=== PATIENT | female | born 1980 | race Caucasian/White ===

== ENCOUNTER 2016-06-30 10:03 | Outpatient (CLI) | payer OTHER | END 2016-06-30 10:04 | disposition home or self-care (01) | DX: K90.0 Celiac disease (principal); M79.7 Fibromyalgia; F41.1 Generalized anxiety disorder; F51.05 Insomnia due to other mental disorder; R25.2 Cramp and spasm; R25.3 Fasciculation; G43.109 Migraine with aura, not intractable, without status migrainosus; K86.81 Exocrine pancreatic insufficiency ==

== ENCOUNTER 2017-08-16 08:44 | Outpatient (CLI) | payer OTHER ==
--- NOTE | 2017-08-16 18:48 | Mammography Report ---
DIGITAL DIAGNOSTIC BILATERAL MAMMOGRAM: 08/16/2017 CLINICAL INDICATION: Left breast pain. TECHNIQUE: Bilateral CC and MLO views, left true lateral view. Markers were placed at the site of maximal tenderness identified by the patient in the left inner posterior breast. Additionally, she described diffuse tenderness throughout the lateral half of the left breast. This is the patient's baseline mammogram. FINDINGS: The breasts demonstrate scattered fibroglandular densities bilaterally. No suspicious mass, clustered microcalcifications, or region of architectural distortion is identified. IMPRESSION: NEGATIVE EXAMINATION. RECOMMENDATION: Routine annual screening, to commence at age 40, unless otherwise clinically indicated. BIRADS category 1-negative. STANDARD QUALIFYING STATEMENTS 1. This examination was reviewed with the aid of Computed-Aided Detection (CAD). 2. A negative or benign imaging report should not delay biopsy if clinically suspicious findings are present. Consider surgical consultation if warranted. More than 5% of cancers are not identified by imaging. 3. Dense breasts may obscure an underlying neoplasm. TD: 08/16/2017 18:46
== END 2017-08-16 08:45 | disposition home or self-care (01) ==
LOC: DI 08:44
PROVIDERS: ATTEND Naturopath
DX: N64.4 Mastodynia (principal)
CPT/HCPCS: 77066

== ENCOUNTER 2018-03-04 12:16 | Emergency (ER) | payer OTHER ==
[2018-03-04 13:36] LABS: BASOPHILS # (AUTO) 0.1 10^3/uL (0.0-0.1); BASOPHILS % (AUTO) 1.2 %; EOSINOPHILS # (AUTO) 0.1 10^3/uL (0.0-0.7); EOSINOPHILS % (AUTO) 1.5 %; HGB - HEMOGLOBIN 15.6 g/dL (12.0-16.0); LYMPHOCYTES % (AUTO) 34.8 %; MEAN CORPUSCULAR HEMOGLOBIN 31.6 pg (27.0-31.0); MEAN CORPUSCULAR HGB CONC 34.6 g/dL (32.0-36.0); MEAN CORPUSCULAR VOLUME 91.2 fL (81.0-99.0); MEAN PLATELET VOLUME 7.1 fL (7.9-10.8); MONOCYTES # (AUTO) 0.5 10^3/uL (0.0-1.0); MONOCYTES % (AUTO) 9.5 %; NEUTROPHILS # (AUTO) 3.1 10^3/uL (1.5-6.6); PLT - PLATELET COUNT 362 10^3/uL (130-450); RED BLOOD COUNT 4.95 10^6/uL (4.20-5.40); RED CELL DISTRIBUTION WIDTH 12.9 % (12.0-15.0); WHITE BLOOD COUNT 5.8 x10^3/uL (4.8-10.8)
[2018-03-04 13:51] LABS: ALBUMIN 4.6 g/dL (3.2-5.5); ALBUMIN/GLOBULIN RATIO 1.6 (1.0-2.2); ALKALINE PHOSPHATASE 52 IU/L (42-121); ALT ALANINE AMINOTRANSFERASE 15 IU/L (10-60); AST ASPARTATE AMINOTRANSFERASE 17 IU/L (10-42); BUN - BLOOD UREA NITROGEN 10 mg/dL (6-20); CALCIUM 9.5 mg/dL (8.5-10.3); CARBON DIOXIDE - CO2 23 mmol/L (21-32); CHLORIDE 105 mmol/L (101-111); CREATININE 0.7 mg/dL (0.4-1.0); GFR - MDRD 94 (>89); GLUCOSE 94 mg/dL (70-100); LIPASE 47 U/L (22-51); SALICYLATE < 6.0 mg/dL; SODIUM 137 mmol/L (135-145); TOTAL PROTEIN 7.5 g/dL (6.7-8.2)
[2018-03-04 14:13] LABS: ACETAMINOPHEN < 10 ug/mL (10-30)
[2018-03-04] MEDS ORDERED: LORazepam 0.5 MG TABLET PO STA (16:09)
--- NOTE | 2018-03-04 16:11 | ED Physician Documentation ---
PD HPI MHE - Stated complaint Stated Complaint: MHE - Chief complaint Chief Complaint: MHE - History obtained from History obtained from: Family () - History of Present Illness Primary symptom: Other (Several stressful things happened to her yesterday. She stopped talking and ran out of the house and started driving. They found her at a park later she said she was tired. This was early afternoon yesterday. She went home and really has not talked to walk or eat or drink since. She did something similar last year but only for a few hours.) Review of Systems Unable to obtain: Uncooperative PD PAST MEDICAL HISTORY - Past Medical History Past Medical History: Yes Psych: Depression, Anxiety, Panic attacks, Other Musculoskeletal: Fibromyalgia, Other - Past Surgical History Past Surgical History: Yes HEENT: Other - Present Medications Home Medications: Ambulatory Orders Medication Instructions Recorded Confirmed Budesonide [Budesonide EC] 3 mg PO 04/27/16 Charcoal DAILY 04/27/16 Diazepam [Valium] 10 mg PO DAILY #5 tablet 04/27/16 Magnesium Oxide [Magnesium] 400 mg PO DAILY 04/27/16 04/27/16 Nystatin 04/27/16 Ondansetron [Zuplenz] 4 mg PO DAILY 04/27/16 04/27/16 Propranolol [Inderal] 40 mg PO BID 04/27/16 04/27/16 RX: Gabapentin 600 mg PO DAILY 04/27/16 04/27/16 RX: Melatonin 10 mg SL 04/27/16 tiZANidine [Zanaflex] 4 mg PO Q8H 04/27/16 04/27/16 Lorazepam [Ativan] 1 mg PO TID PRN #10 tablet 03/04/18 - Allergies Allergies/Adverse Reactions: Allergies Allergy/AdvReac Type Severity Reaction Status Date / Time carisoprodol Allergy Anaphylaxis Verified 03/04/18 12:38 diclofenac Allergy Edema Verified 03/04/18 12:38 Latex, Natural Rubber Allergy Unknown Verified 03/04/18 12:38 cyclobenzaprine AdvReac Headache Verified 03/04/18 12:38 methocarbamol AdvReac Headache Verified 03/04/18 12:38 pseudoephedrine AdvReac Unknown Verified 03/04/18 12:38 Sulfa (Sulfonamide AdvReac Hives Verified 03/04/18 12:38 Antibiotics) - Social History Does the pt smoke?: No Smoking Status: Never smoker Does the pt drink ETOH?: No Does the pt have substance abuse?: No - Immunizations Immunizations are current?: Yes - POLST Patient has POLST: No PD ED PE NORMAL - Vitals Vital signs reviewed: Yes - General General: No acute distress, Other (She is laying in the bed comfortable with her eyes closed. She does follow simple commands like raising her arms and it is all symmetric.) - HEENT HEENT: PERRL - Neck Neck: Supple, no meningeal sign, No bony TTP - Cardiac Cardiac: RRR, No murmur - Respiratory Respiratory: No respiratory distress, Clear bilaterally - Abdomen Abdomen: Normal bowel sounds, Soft, Non tender - Back Back: No CVA TTP, No spinal TTP - Derm Derm: Normal color, Warm and dry - Extremities Extremities: No edema, No calf tenderness / cord Results - Vitals Vitals: Vital Signs - 24 hr 03/04/18 03/04/18 03/04/18 12:30 16:25 18:06 Temperature 36.7 C Heart Rate 81 93 79 Respiratory 14 22 16 Rate Blood Pressure 129/97 H 138/99 H 133/93 H O2 Saturation 98 97 97 Oxygen O2 Source Room air - Labs Labs: Laboratory Tests 03/04/18 03/04/18 03/04/18 13:27 13:27 13:27 WBC 5.8 RBC 4.95 Hgb 15.6 Hct 45.1 MCV 91.2 MCH 31.6 H MCHC 34.6 RDW 12.9 Plt Count 362 MPV 7.1 L Neut # (Auto) 3.1 Lymph # (Auto) 2.0 [place] # (Auto) 0.5 Eos # (Auto) 0.1 Baso # (Auto) 0.1 Absolute Nucleated RBC 0.00 Nucleated RBC % 0.0 Sodium 137 Potassium 4.2 Chloride 105 Carbon Dioxide 23 Anion Gap 9.0 BUN 10 Creatinine 0.7 Estimated GFR (MDRD) 94 Glucose 94 Calcium 9.5 Total Bilirubin 1.0 AST 17 ALT 15 Alkaline Phosphatase 52 Total Protein 7.5 Albumin 4.6 Globulin 2.9 Albumin/Globulin Ratio 1.6 Lipase 47 TSH 3.08 Urine Color Urine Clarity Urine pH Ur Specific [place] Urine Protein Urine Glucose (UA) Urine Ketones Urine Occult Blood Urine Nitrite Urine Bilirubin Urine Urobilinogen Ur Leukocyte Esterase Urine RBC Urine WBC Ur Squamous Epith Cells Urine Bacteria Urine Mucus Ur Microscopic Review Urine Culture Comments Urine HCG, Qual Salicylates < 6.0 Urine Opiates Screen Ur Oxycodone Screen Urine Methadone Screen Ur Propoxyphene Screen Acetaminophen < 10 L Ur Barbiturates Screen Ur Tricyclics Screen Ur Phencyclidine Scrn Ur Amphetamine Screen U Methamphetamines Scrn U Benzodiazepines Scrn Urine Cocaine Screen U Cannabinoids Screen Ethyl Alcohol < 5.0 03/04/18 03/04/18 18:15 18:15 WBC RBC Hgb Hct MCV MCH MCHC RDW Plt Count MPV Neut # (Auto) Lymph # (Auto) [place] # (Auto) Eos # (Auto) Baso # (Auto) Absolute Nucleated RBC Nucleated RBC % Sodium Potassium Chloride Carbon Dioxide Anion Gap BUN Creatinine Estimated GFR (MDRD) Glucose Calcium Total Bilirubin AST ALT Alkaline Phosphatase Total Protein Albumin Globulin Albumin/Globulin Ratio Lipase TSH Urine Color YELLOW Urine Clarity HAZY Urine pH 6.0 Ur Specific [place] 1.025 Urine Protein NEGATIVE Urine Glucose (UA) NEGATIVE Urine Ketones >=80 H Urine Occult Blood NEGATIVE Urine Nitrite NEGATIVE Urine Bilirubin NEGATIVE Urine Urobilinogen 0.2 (NORMAL) Ur Leukocyte Esterase TRACE H Urine RBC 0-5 Urine WBC 0-3 Ur Squamous Epith Cells MOD Squamous H Urine Bacteria Rare Urine Mucus Moderate Strands Ur Microscopic Review INDICATED Urine Culture Comments NOT INDICATED Urine HCG, Qual NEGATIVE Salicylates Urine Opiates Screen NEGATIVE Ur Oxycodone Screen NEGATIVE Urine Methadone Screen NEGATIVE Ur Propoxyphene Screen NEGATIVE Acetaminophen Ur Barbiturates Screen NEGATIVE Ur Tricyclics Screen NEGATIVE Ur Phencyclidine Scrn NEGATIVE Ur Amphetamine Screen NEGATIVE U Methamphetamines Scrn NEGATIVE U Benzodiazepines Scrn NEGATIVE Urine Cocaine Screen NEGATIVE U Cannabinoids Screen POSITIVE H Ethyl Alcohol PD MEDICAL DECISION MAKING - ED course ED course: She presents in a catatonic state although does respond to commands. The history suggests a psychiatric etiology. Long discussion was had with the we decided to give her some Ativan. She refused oral Ativan it was given IM. She woke up after that and had her eyes open and was responding to verbal but still nonverbal herself. She would shrug and nod and shake her head to questions. She did complain of a migraine headache. She admits that she has these at home and usually takes off brand Excedrin migraine for this and something similar was ordered. About 6-15 p.m. the patient was awake and talking and had normal affect and felt back to normal. She had eaten and drank. - Sepsis Event Vital Signs: Vital Signs - 24 hr 03/04/18 03/04/18 03/04/18 12:30 16:25 18:06 Temperature 36.7 C Heart Rate 81 93 79 Respiratory 14 22 16 Rate Blood Pressure 129/97 H 138/99 H 133/93 H O2 Saturation 98 97 97 Oxygen O2 Source Room air Departure - Departure Disposition: 01 Home, Self Care Clinical Impression: Conversion disorder Condition: Good Record reviewed to determine appropriate education?: Yes Instructions: ED Stress React Prescriptions: Lorazepam [Ativan] 1 mg PO TID PRN #10 tablet PRN Reason: Anxiety Comments: FOLLOWUP WITH [facility] IN [place]. [phone] Discharge Date/Time: 03/04/18 18:49
[2018-03-04] MEDS ORDERED: LORazepam 2 MG/ML VIAL IM STA (16:18)
[2018-03-04] MEDS ORDERED: IBUPROFEN 800 MG TABLET PO STA (17:23)
[2018-03-04] MEDS ORDERED: diphenhydrAMINE 25 MG CAPSULE PO STA (17:23)
[2018-03-04] MEDS ORDERED: ACETAMINOPHEN 325 MG TABLET PO STA (17:33)
[2018-03-04 18:08] VITALS: BP 133/93
[2018-03-04 18:28] LABS: MUDS CUTOFF CONCENTRATIONS CUTOFF CONC BELOW:
[2018-03-04 18:37] LABS: BILIRUBIN,URINE NEGATIVE (NEGATIVE); GLUCOSE, URINE (UA) NEGATIVE (NEGATIVE); KETONES,URINE (UA) >=80 mg/dL (NEGATIVE); LEUKOCYTE ESTERASE, URINE TRACE (NEGATIVE); NITRITE,URINE NEGATIVE (NEGATIVE); OCCULT BLOOD,URINE NEGATIVE (NEGATIVE); PROTEIN,URINE NEGATIVE (NEGATIVE); UROBILINOGEN,URINE 0.2 (NORMAL) E.U./dL (NORMAL)
[2018-03-04 18:51] LABS: AMPHETAMINE SCREEN,URINE NEGATIVE (NEGATIVE); BENZODIAZEPINES SCREEN, URINE NEGATIVE (NEGATIVE); CLARITY,URINE HAZY (CLEAR); COCAINE SCREEN URINE NEGATIVE (NEGATIVE); HCG UR QUAL NEGATIVE; METHADONE SCREEN, URINE NEGATIVE (NEGATIVE); METHAMPHETAMINES SCREEN, URINE NEGATIVE (NEGATIVE); OPIATE SCREEN, URINE NEGATIVE (NEGATIVE); OXYCODONE SCREEN, URINE NEGATIVE (NEGATIVE); PROPOXYPHENE SCREEN, URINE NEGATIVE (NEGATIVE); TRICYCLIC ANTIDEPRESSANT,URINE NEGATIVE (NEGATIVE)
[2018-03-04 18:52] LABS: BACTERIA,URINE Rare /HPF (None Seen); MUCUS,URINE Moderate Strands; RBC,URINE 0-5 /HPF (0-5); SQUAMOUS EPITHELIAL CELL,UR MOD Squamous (<= Few)
== END 2018-03-04 18:49 | disposition home or self-care (01) ==
LOC: ED 12:16
DX: F44.7 Conversion disorder with mixed symptom presentation (principal); G43.909 Migraine, unspecified, not intractable, without status migrainosus; F32.9 Major depressive disorder, single episode, unspecified; F41.9 Anxiety disorder, unspecified
CPT/HCPCS: 36415; 80053; 80306; 80307; 80320; 80329; 81001; 81025; 83690; 84443; 85025; 96372; 99283; A9270; J2060; 81003; 87086

== ENCOUNTER 2018-03-28 16:19 | Emergency (ER) | payer OTHER ==
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
[2018-03-28] MEDS ORDERED: ACETAMINOPHEN 325 MG TABLET PO STA (17:41)
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
[2018-03-28 18:34] VITALS: BP 130/88
== END 2018-03-28 18:32 | disposition home or self-care (01) ==
LOC: ED 16:19
DX: S70.11XA Contusion of right thigh, initial encounter (principal); S10.91XA Abrasion of unspecified part of neck, initial encounter; Y04.2XXA Assault by strike against or bumped into by another person, initial encounter; Y92.009 Unspecified place in unspecified non-institutional (private) residence as the place of occurrence of the external cause
CPT/HCPCS: 73552; 99283; A9270

== ENCOUNTER 2019-11-24 17:33 | Outpatient (CLI) | payer OTHER | END 2019-11-24 17:34 | disposition critical access hospital (66) | LOC: EMS 17:33 | PROVIDERS: ATTEND Surgery | DX: R45.851 Suicidal ideations (principal); R52 Pain, unspecified | CPT/HCPCS: A0425; A0429 ==

== ENCOUNTER 2019-11-24 17:44 | Emergency (ER) | payer OTHER ==
[2019-11-24] MEDS ORDERED: SODIUM CHLORIDE 0.9% 1,000 ML IV STA ×2 (17:54)
[2019-11-24] MEDS ORDERED: LORazepam 2 MG/ML VIAL IVP STA (18:03)
[2019-11-24 18:04] LABS: BASOPHILS # (AUTO) 0.1 10^3/uL (0.0-0.1); BASOPHILS % (AUTO) 0.9 %; EOSINOPHILS # (AUTO) 0.1 10^3/uL (0.0-0.7); EOSINOPHILS % (AUTO) 1.1 %; HGB - HEMOGLOBIN 15.6 g/dL (12.0-16.0); LYMPHOCYTES % (AUTO) 27.7 %; MEAN CORPUSCULAR HEMOGLOBIN 32.4 pg (27.0-31.0); MEAN CORPUSCULAR HGB CONC 34.7 g/dL (32.0-36.0); MEAN CORPUSCULAR VOLUME 93.3 fL (81.0-99.0); MEAN PLATELET VOLUME 8.4 fL (7.9-10.8); MONOCYTES # (AUTO) 0.6 10^3/uL (0.0-1.0); MONOCYTES % (AUTO) 8.3 %; NEUTROPHILS # (AUTO) 4.6 10^3/uL (1.5-6.6); NEUTROPHILS % (AUTO) 61.7 %; PLT - PLATELET COUNT 336 10^3/uL (130-450); RED BLOOD COUNT 4.81 10^6/uL (4.20-5.40); RED CELL DISTRIBUTION WIDTH 11.9 % (12.0-15.0); WHITE BLOOD COUNT 7.4 x10^3/uL (4.8-10.8)
--- NOTE | 2019-11-24 18:15 | ED Physician Documentation ---
PD HPI MHE - Stated complaint Stated Complaint: SI - Chief complaint Chief Complaint: General - History obtained from History obtained from: Patient, Family - History of Present Illness Primary symptom: Suicidal ideation Timing - onset: How many days ago (3) Pain level max: 0 Pain level now: 0 Contributing factors: Other (states that she is tired of having medical problems and "being sick".) Similar symptoms before: Diagnosis (Depression) - Additional information Additional information: 39-year-old female brought into the emergency department by EMS. Her called 911 because she had been refusing to eat for the past 2 days. She had some water last night but none today. He states that she said she was just going to lie in bed until she . She states she is tired of having chronic medical issues and does not want to live anymore. She does not want to see a psychiatrist. She does not want any psychiatric help. She does not want to see a counselor. Review of Systems Ten Systems: 10 systems reviewed and negative Constitutional: denies: Fever, Chills Ears: denies: Ear pain Nose: denies: Rhinorrhea / runny nose, Congestion Respiratory: denies: Cough GI: denies: Abdominal Pain, Vomiting, Diarrhea Skin: denies: Rash Musculoskeletal: denies: Neck pain, Back pain Neurologic: denies: Focal weakness, Numbness, Headache PD PAST MEDICAL HISTORY - Past Medical History Past Medical History: Yes Respiratory: None Neuro: None Endocrine/Autoimmune: Other GI: Diverticulitis INTERNATIONAL REPRESENTATIVE: None HEENT: None Psych: Depression, Anxiety, Panic attacks, Other Musculoskeletal: Fibromyalgia, Other Derm: None - Past Surgical History Past Surgical History: Yes HEENT: Other - Present Medications Home Medications: Ambulatory Orders Medication Instructions Recorded Confirmed Budesonide [Budesonide EC] 3 mg PO 04/27/16 Charcoal DAILY 04/27/16 Diazepam [Valium] 10 mg PO DAILY #5 tablet 04/27/16 Gabapentin 600 mg PO DAILY 04/27/16 04/27/16 Magnesium Oxide [Magnesium] 400 mg PO DAILY 04/27/16 04/27/16 Melatonin 10 mg SL 04/27/16 Nystatin 04/27/16 Ondansetron [Zuplenz] 4 mg PO DAILY 04/27/16 04/27/16 Propranolol [Inderal] 40 mg PO BID 04/27/16 04/27/16 tiZANidine [Zanaflex] 4 mg PO Q8H 04/27/16 04/27/16 Lorazepam [Ativan] 1 mg PO TID PRN #10 tablet 03/04/18 - Allergies Allergies/Adverse Reactions: Allergies Allergy/AdvReac Type Severity Reaction Status Date / Time carisoprodol Allergy Anaphylaxis Verified 11/24/19 17:59 diclofenac Allergy Edema Verified 11/24/19 17:59 Latex, Natural Rubber Allergy Unknown Verified 11/24/19 17:59 cyclobenzaprine AdvReac Headache Verified 11/24/19 17:59 methocarbamol AdvReac Headache Verified 11/24/19 17:59 pseudoephedrine AdvReac Unknown Verified 11/24/19 17:59 Sulfa (Sulfonamide AdvReac Hives Verified 11/24/19 17:59 Antibiotics) - Social History Does the pt smoke?: No Smoking Status: Never smoker Does the pt drink ETOH?: No Does the pt have substance abuse?: No - Immunizations Immunizations are current?: Yes - POLST Patient has POLST: No PD ED PE NORMAL - Vitals Vital signs reviewed: Yes - General General: Alert and oriented X 3, No acute distress, Well developed/nourished - HEENT HEENT: PERRL, Moist mucous membranes - Neck Neck: Supple, no meningeal sign - Cardiac Cardiac: RRR, Strong equal pulses - Respiratory Respiratory: No respiratory distress, Clear bilaterally - Abdomen Abdomen: Soft, Non tender, Non distended - Derm Derm: Warm and dry - Extremities Extremities: No edema - Neuro Neuro: Alert and oriented X 3 - Psych Psych: Normal mood, Normal affect Results - Vitals Vitals: Vital Signs - 24 hr 11/24/19 17:44 Temperature 36.9 C Heart Rate 75 Respiratory 18 Rate Blood Pressure 166/80 H O2 Saturation 99 Oxygen O2 Source Room air - EKG (time done) 1838 Rate: Rate (enter#) (64) Rhythm: NSR [place]: Normal Intervals: Normal [place] QRS: Normal Ischemia: Normal ST segments - Labs Labs: Laboratory Tests 11/24/19 11/24/19 11/24/19 17:58 17:58 17:58 WBC 7.4 RBC 4.81 Hgb 15.6 Hct 44.9 MCV 93.3 MCH 32.4 H MCHC 34.7 RDW 11.9 L Plt Count 336 MPV 8.4 Neut # (Auto) 4.6 Lymph # (Auto) 2.0 [place] # (Auto) 0.6 Eos # (Auto) 0.1 Baso # (Auto) 0.1 Absolute Nucleated RBC 0.00 Nucleated RBC % 0.0 Sodium 137 Potassium 3.8 Chloride 102 Carbon Dioxide 22 Anion Gap 13.0 BUN 11 Creatinine 0.8 Estimated GFR (MDRD) 80 L Glucose 92 Calcium 9.5 Total Bilirubin 1.1 H AST 16 ALT 15 Alkaline Phosphatase 48 Total Protein 7.7 Albumin 4.1 Globulin 3.6 Albumin/Globulin Ratio 1.1 Lipase 33 TSH 1.12 Urine Color Urine Clarity Urine pH Ur Specific [place] Urine Protein Urine Glucose (UA) Urine Ketones Urine Occult Blood Urine Nitrite Urine Bilirubin Urine Urobilinogen Ur Leukocyte Esterase Ur Microscopic Review Urine Culture Comments Urine HCG, Qual Salicylates < 6.0 Urine Opiates Screen Ur Oxycodone Screen Urine Methadone Screen Ur Propoxyphene Screen Acetaminophen < 10 L Ur Barbiturates Screen Ur Tricyclics Screen Ur Phencyclidine Scrn Ur Amphetamine Screen U Methamphetamines Scrn U Benzodiazepines Scrn Urine Cocaine Screen U Cannabinoids Screen Ethyl Alcohol < 5.0 11/24/19 11/24/19 18:03 18:03 WBC RBC Hgb Hct MCV MCH MCHC RDW Plt Count MPV Neut # (Auto) Lymph # (Auto) [place] # (Auto) Eos # (Auto) Baso # (Auto) Absolute Nucleated RBC Nucleated RBC % Sodium Potassium Chloride Carbon Dioxide Anion Gap BUN Creatinine Estimated GFR (MDRD) Glucose Calcium Total Bilirubin AST ALT Alkaline Phosphatase Total Protein Albumin Globulin Albumin/Globulin Ratio Lipase TSH Urine Color YELLOW Urine Clarity CLEAR Urine pH 6.0 Ur Specific [place] 1.025 Urine Protein NEGATIVE Urine Glucose (UA) NEGATIVE Urine Ketones 40 H Urine Occult Blood NEGATIVE Urine Nitrite NEGATIVE Urine Bilirubin NEGATIVE Urine Urobilinogen 0.2 (NORMAL) Ur Leukocyte Esterase NEGATIVE Ur Microscopic Review NOT INDICATED Urine Culture Comments NOT INDICATED Urine HCG, Qual NEGATIVE Salicylates Urine Opiates Screen NEGATIVE Ur Oxycodone Screen NEGATIVE Urine Methadone Screen NEGATIVE Ur Propoxyphene Screen NEGATIVE Acetaminophen Ur Barbiturates Screen NEGATIVE Ur Tricyclics Screen NEGATIVE Ur Phencyclidine Scrn NEGATIVE Ur Amphetamine Screen NEGATIVE U Methamphetamines Scrn NEGATIVE U Benzodiazepines Scrn NEGATIVE Urine Cocaine Screen NEGATIVE U Cannabinoids Screen NEGATIVE Ethyl Alcohol PD MEDICAL DECISION MAKING - ED course Complexity details: reviewed results, re-evaluated patient, considered differential, d/w patient, d/w family, d/w clothing consultant ED course: Patient is medically clear for psychiatric care. She does not want to go anywhere voluntarily. She does not want to speak to a counselor or psychiatrist. Therefore the DCR was contacted, Tatiana who will evaluate the patient. Patient feels better after Ativan. She feels better after IV fluids. She is tolerating p.o. without difficulty. She was evaluated by the [facility] P. She contracts for safety. She states she will go back to counseling. She agrees to eat and drink every day. She does not have any active suicidal thoughts at this time. Patient and are comfortable going home at this time. Patient and family counseled regarding signs and symptoms for which I believe and urgent re-evaluation would be necessary. Patient with good understanding of and agreement to plan and is comfortable going home at this time This document was made in part using voice recognition software. While efforts are made to proofread this document, sound alike and grammatical errors may occur. Departure - Departure Disposition: 01 Home, Self Care Clinical Impression: Depression Qualifiers: Depression Type: unspecified Qualified Code(s): F32.9 - Major depressive disorder, single episode, unspecified Condition: Good Instructions: ED Depression Follow-Up: your,doctor in 3 days [Other] Comments: You need to follow-up with the counselors as directed by Tatiana, the [facility] Venessa chaparro. Return if you worsen. You have contracted for safety with her shankar. You need to continue to eat and drink. Crisis Line and is available to talk to someone [email or web address] is also available to chat with someone online if you prefer. There are also many resources on this website and apps for your phone to help with your mental health You can also text the word START to [phone] to chat with someome via text.
[2019-11-24 18:16] LABS: MUDS CUTOFF CONCENTRATIONS CUTOFF CONC BELOW:
[2019-11-24 18:21] LABS: ACETAMINOPHEN < 10 ug/mL (10-30); ALBUMIN 4.1 g/dL (3.2-5.5); ALBUMIN/GLOBULIN RATIO 1.1 (1.0-2.2); ALKALINE PHOSPHATASE 48 IU/L (42-121); ALT ALANINE AMINOTRANSFERASE 15 IU/L (10-60); AST ASPARTATE AMINOTRANSFERASE 16 IU/L (10-42); BILIRUBIN,TOTAL 1.1 mg/dL (0.2-1.0); BUN - BLOOD UREA NITROGEN 11 mg/dL (6-20); CALCIUM 9.5 mg/dL (8.5-10.3); CARBON DIOXIDE - CO2 22 mmol/L (21-32); CHLORIDE 102 mmol/L (101-111); CREATININE 0.8 mg/dL (0.4-1.0); GLUCOSE 92 mg/dL (70-100); LIPASE 33 U/L (22-51); SALICYLATE < 6.0 mg/dL; SODIUM 137 mmol/L (135-145); TOTAL PROTEIN 7.7 g/dL (6.7-8.2)
[2019-11-24 18:22] LABS: BILIRUBIN,URINE NEGATIVE (NEGATIVE); GLUCOSE, URINE (UA) NEGATIVE (NEGATIVE); KETONES,URINE (UA) 40 mg/dL (NEGATIVE); LEUKOCYTE ESTERASE, URINE NEGATIVE (NEGATIVE); NITRITE,URINE NEGATIVE (NEGATIVE); OCCULT BLOOD,URINE NEGATIVE (NEGATIVE); PROTEIN,URINE NEGATIVE (NEGATIVE); UROBILINOGEN,URINE 0.2 (NORMAL) E.U./dL (NORMAL)
[2019-11-24 18:23] LABS: CLARITY,URINE CLEAR (CLEAR); HCG UR QUAL NEGATIVE
[2019-11-24 18:37] LABS: AMPHETAMINE SCREEN,URINE NEGATIVE (NEGATIVE); BENZODIAZEPINES SCREEN, URINE NEGATIVE (NEGATIVE); COCAINE SCREEN URINE NEGATIVE (NEGATIVE); METHADONE SCREEN, URINE NEGATIVE (NEGATIVE); METHAMPHETAMINES SCREEN, URINE NEGATIVE (NEGATIVE); OPIATE SCREEN, URINE NEGATIVE (NEGATIVE); OXYCODONE SCREEN, URINE NEGATIVE (NEGATIVE); PROPOXYPHENE SCREEN, URINE NEGATIVE (NEGATIVE); TRICYCLIC ANTIDEPRESSANT,URINE NEGATIVE (NEGATIVE)
[2019-11-24 21:59] VITALS: BP 156/80
== END 2019-11-24 22:02 | disposition home or self-care (01) ==
LOC: EDUNIT# → ED 17:44
DX: F32.9 Major depressive disorder, single episode, unspecified (principal); R45.851 Suicidal ideations; I49.1 Atrial premature depolarization
CPT/HCPCS: 36415; 80053; 80306; 80307; 80320; 80329; 81001; 81003; 81025; 83690; 84443; 85025; 87086; 93005; 96360; 99284

== ENCOUNTER 2020-11-17 12:24 | Outpatient (CLI) | payer OTHER ==
[2020-11-17 13:01] LABS: ALBUMIN 4.5 g/dL (3.2-5.5); ALBUMIN/GLOBULIN RATIO 1.7 (1.0-2.2); BILIRUBIN,TOTAL 0.7 mg/dL (0.2-1.0); CALCIUM 9.6 mg/dL (8.5-10.3); CREATININE 0.7 mg/dL (0.4-1.0); CRP HIGH SENSITIVITY 1.7 mg/L; POTASSIUM 4.1 mmol/L (3.5-5.0); TOTAL PROTEIN 7.2 g/dL (6.7-8.2)
[2020-11-17 13:19] LABS: FERRITIN 54.1 ng/mL (11.0-306.8)
[2020-11-17 13:22] LABS: FOLATE 7.2 ng/mL (5.90 - >24.8)
[2020-11-20 09:51] LABS: COPPER 120 mcg/dL (70-175)
== END 2020-11-17 12:25 | disposition home or self-care (01) ==
LOC: LAB 12:24
PROVIDERS: ATTEND Nurse Practitioner Adult Health
DX: K90.0 Celiac disease (principal)
CPT/HCPCS: 36415; 80053; 82525; 82607; 82728; 82746; 82784; 83516; 83540; 84466; 84630; 86141; 86255

== ENCOUNTER 2020-12-20 16:56 | Emergency (ER) | payer OTHER ==
[2020-12-20 17:26] LABS: BASOPHILS # (AUTO) 0.1 10^3/uL (0.0-0.1); BASOPHILS % (AUTO) 1.4 %; EOSINOPHILS # (AUTO) 0.3 10^3/uL (0.0-0.7); EOSINOPHILS % (AUTO) 5.4 %; HCT - HEMATOCRIT 41.8 % (37.0-47.0); HGB - HEMOGLOBIN 14.6 g/dL (12.0-16.0); LYMPHOCYTES # (AUTO) 1.7 10^3/uL (1.5-3.5); LYMPHOCYTES % (AUTO) 33.6 %; MEAN CORPUSCULAR HEMOGLOBIN 31.8 pg (27.0-31.0); MEAN CORPUSCULAR HGB CONC 34.9 g/dL (32.0-36.0); MEAN CORPUSCULAR VOLUME 91.1 fL (81.0-99.0); MEAN PLATELET VOLUME 8.6 fL (7.9-10.8); MONOCYTES # (AUTO) 0.5 10^3/uL (0.0-1.0); MONOCYTES % (AUTO) 10.2 %; NEUTROPHILS # (AUTO) 2.5 10^3/uL (1.5-6.6); NEUTROPHILS % (AUTO) 49.2 %; PLT - PLATELET COUNT 403 10^3/uL (130-450); RED BLOOD COUNT 4.59 10^6/uL (4.20-5.40); RED CELL DISTRIBUTION WIDTH 12.1 % (12.0-15.0)
[2020-12-20 17:36] LABS: ALBUMIN 4.4 g/dL (3.2-5.5); ALBUMIN/GLOBULIN RATIO 1.5 (1.0-2.2); BILIRUBIN,TOTAL 0.7 mg/dL (0.2-1.0); CALCIUM 9.4 mg/dL (8.5-10.3); POTASSIUM 4.1 mmol/L (3.5-5.0); TOTAL PROTEIN 7.4 g/dL (6.7-8.2)
--- NOTE | 2020-12-20 19:24 | ED Physician Documentation ---
PD HPI ABD PAIN - Stated complaint Stated Complaint: FEMALE - Chief complaint Chief Complaint: Abd Pain - History obtained from History obtained from: Patient - Additional information Additional information: Heavy heavy vaginal bleeding today with some weakness and dizziness. No cramps. She has a history of Tracie-Danlos. Current menses is at the normal time. Review of Systems Ten Systems: 10 systems reviewed and negative Constitutional: reports: Fatigue. denies: Fever, Chills Nose: reports: Reviewed and negative Throat: reports: Reviewed and negative Cardiac: reports: Reviewed and negative Respiratory: reports: Reviewed and negative PD PAST MEDICAL HISTORY - Past Medical History Respiratory: None Neuro: None Endocrine/Autoimmune: Other GI: Diverticulitis MUSEUM TECHNICIAN: None HEENT: None Psych: Depression, Anxiety, Panic attacks, Other Musculoskeletal: Fibromyalgia, Other Derm: None - Past Surgical History Past Surgical History: Yes HEENT: Other - Present Medications Home Medications: Ambulatory Orders Medication Instructions Recorded Confirmed Budesonide [Budesonide EC] 3 mg PO 04/27/16 Charcoal DAILY 04/27/16 Diazepam [Valium] 10 mg PO DAILY #5 tablet 04/27/16 Gabapentin 600 mg PO DAILY 04/27/16 04/27/16 Magnesium Oxide [Magnesium] 400 mg PO DAILY 04/27/16 04/27/16 Melatonin 10 mg SL 04/27/16 Nystatin 04/27/16 Ondansetron [Zuplenz] 4 mg PO DAILY 04/27/16 04/27/16 Propranolol [Inderal] 40 mg PO BID 04/27/16 04/27/16 tiZANidine [Zanaflex] 4 mg PO Q8H 04/27/16 04/27/16 Lorazepam [Ativan] 1 mg PO TID PRN #10 tablet 03/04/18 Medroxyprogesterone Acetate 2 tab PO TID 7 Days #42 tablet 12/20/20 [Provera] - Allergies Allergies/Adverse Reactions: Allergies Allergy/AdvReac Type Severity Reaction Status Date / Time carisoprodol Allergy Anaphylaxis Verified 12/20/20 17:00 diclofenac Allergy Edema Verified 12/20/20 17:00 Latex, Natural Rubber Allergy Unknown Verified 12/20/20 17:00 cyclobenzaprine AdvReac Headache Verified 12/20/20 17:00 methocarbamol AdvReac Headache Verified 12/20/20 17:00 pseudoephedrine AdvReac Unknown Verified 12/20/20 17:00 Sulfa (Sulfonamide AdvReac Hives Verified 12/20/20 17:00 Antibiotics) - Social History Does the pt smoke?: No Smoking Status: Never smoker Does the pt drink ETOH?: No Does the pt have substance abuse?: No - Immunizations Immunizations are current?: Yes - POLST Patient has POLST: No PD ED PE NORMAL - Vitals Vital signs reviewed: Yes - General General: Alert and oriented X 3, No acute distress - Cardiac Cardiac: RRR, No murmur - Respiratory Respiratory: No respiratory distress, Clear bilaterally - Abdomen Abdomen: Non tender - Female Female : Motor Equipment Commanding Officer present, Other (slow venous ooze fron os) - Back Back: No CVA TTP, No spinal TTP - Neuro Neuro: Alert and oriented X 3, Normal speech - Psych Psych: Normal mood, Normal affect Results - Vitals Vitals: Vital Signs - 24 hr 12/20/20 12/20/20 17:01 19:40 Temperature 36.5 C Heart Rate 78 89 Respiratory 16 18 Rate Blood Pressure 157/98 H 149/95 H O2 Saturation 99 99 Oxygen O2 Source Room air - Labs Labs: Laboratory Tests 12/20/20 12/20/20 12/20/20 17:17 17:17 17:17 WBC 5.0 RBC 4.59 Hgb 14.6 Hct 41.8 MCV 91.1 MCH 31.8 H MCHC 34.9 RDW 12.1 Plt Count 403 MPV 8.6 Neut # (Auto) 2.5 Lymph # (Auto) 1.7 Piute # (Auto) 0.5 Eos # (Auto) 0.3 Baso # (Auto) 0.1 Absolute Nucleated RBC 0.00 Nucleated RBC % 0.0 Sodium 138 Potassium 4.1 Chloride 104 Carbon Dioxide 25 Anion Gap 9.0 BUN 10 Creatinine 1.0 Estimated GFR (MDRD) 61 L Glucose 123 H Calcium 9.4 Total Bilirubin 0.7 AST 20 ALT 22 Alkaline Phosphatase 63 Total Protein 7.4 Albumin 4.4 Globulin 3.0 Albumin/Globulin Ratio 1.5 Lipase 33 HCG, Quant Blood Type O POSITIVE 12/20/20 17:17 WBC RBC Hgb Hct MCV MCH MCHC RDW Plt Count MPV Neut # (Auto) Lymph # (Auto) Piute # (Auto) Eos # (Auto) Baso # (Auto) Absolute Nucleated RBC Nucleated RBC % Sodium Potassium Chloride Carbon Dioxide Anion Gap BUN Creatinine Estimated GFR (MDRD) Glucose Calcium Total Bilirubin AST ALT Alkaline Phosphatase Total Protein Albumin Globulin Albumin/Globulin Ratio Lipase HCG, Quant < 0.60 Blood Type PD MEDICAL DECISION MAKING - ED course ED course: 40-year-old woman presents with heavy vaginal bleeding, although pelvic exam there is a significant mount of blood in the vault it is at most a slow ooze from the cervical os. She is not and her H&H and hemodynamics are good. I am treating her with oral Provera and tranexamic acid. Single dose only for the tranexamic acid. Of note [employer] in the formulary only have IV tranexamic acid. I can only order it IV but notified the nurse to give it orally with some hargrove syrup. The dosing is pretty similar to the oral formulations. Departure - Departure Disposition: Home, Self Care Clinical Impression: Abnormal uterine bleeding Condition: Good Record reviewed to determine appropriate education?: Yes Instructions: ED Bleed Irregular Vaginal Prescriptions: Medroxyprogesterone Acetate [Provera] 2 tab PO TID 7 Days #42 tablet Comments: Return if worsening, follow-up with your liability claims manager regardless. For your records your lab work is as follows: CBC: White count 5.0, hemoglobin 14.6, hematocrit, 41.8, platelets 403, chemistries are normal, serum beta-hCG is undetectable.
[2020-12-20] MEDS ORDERED: TRANEXAMIC ACID 1,000 MG in SODIUM CHLORIDE 0.9% 100ML 100 ML IV STA (20:23)
[2020-12-20] MEDS ORDERED: TRANEXAMIC ACID 1,000 MG/10 ML VIAL ONE ×2 (20:31→20:40)
[2020-12-20] MEDS ORDERED: CHERRY SYRUP 10 ML UDC PO ONE (20:42)
[2020-12-20 21:21] VITALS: BP 148/94
== END 2020-12-20 21:00 | disposition home or self-care (01) ==
LOC: ED 16:56
DX: N93.9 Abnormal uterine and vaginal bleeding, unspecified (principal)
CPT/HCPCS: 36415; 80053; 83690; 84702; 85025; 86900; 86901; 96365; 99283; A9270

== ENCOUNTER 2020-12-25 16:32 | Outpatient (CLI) | payer OTHER ==
--- NOTE | 2020-12-25 17:43 | Ultrasound Report ---
PROCEDURE: Pelvic w/Transvaginal INDICATIONS: ABN UTERINE AND VAGINAL BLEEDING TECHNIQUE: Real-time scanning was performed of the pelvic organs, with image documentation. Additional endovagi nal scanning was necessary due to incomplete visualization of the adnexal and endometrial structures by transabdominal scanning. COMPARISON: None. FINDINGS: No pathologic free abdominal or pelvic fluid. Uterus: Uterus is normal in size at 8.9 x 4.3 x 6.2 cm. The endometrium measures 7 mm in combined t hickness. There is a mid anterior intramural fibroid that measures up to 3.4 cm. Ovaries: The right ovary measures 2.5 x 1.7 x 1.7 cm and the left ovary measures 2.8 x 1.4 x 1.8 cm. The right ovary demonstrates a simple appearing cystic follicle that measures up to 1.3 cm and is co nsidered to be within physiologic limits. No significant ovarian abnormalities are seen. There are l ess than 12 follicles seen on each side. No adnexal masses are seen. IMPRESSION: A 3.4 cm fibroid can be seen anteriorly, without an additional significant pelvic ultrasound abnormal ity seen. Reviewed by: Kieran Torres MD on 12/25/2020 4:42 PM TOS[facility] Approved by: Kieran Torres MD on 12/25/2020 4:42 PM TOSHA Station ID: [id number]
== END 2020-12-25 16:33 | disposition home or self-care (01) ==
LOC: DI 16:32
PROVIDERS: ATTEND Naturopath
DX: D25.1 Intramural leiomyoma of uterus (principal)